=== PATIENT | male | born 1990 | race African-American/Black ===

== ENCOUNTER → 2024-02-03 09:10 | Outpatient (CLI) | payer OTHER, SELFPAY ==
--- NOTE | 2024-02-03 09:13 | DI.ECHO.S_ITS ---
[facility] : : [address] : : [place] : : [id number] : : Phone: [phone] Echocardiogram Report + + :Name: JAZMYN CASEY Study Date: 02/03/2024 Height: 70 in : :[facility] ReadingLocation: Weight: 203 lb : : Gender: Male BSA: 2.1 m2 : :: 1990 Age: 33 yrs BP: 128/83 mmHg: :Reason For Study: CARDIAC DYSRHYTHMIA : :Ordering Physician: NANNETTE, : :MALIK Performed By: Austin Omer : :Referring: MALIK BRUNSON : + + Interpretation Summary 1) Normal left ventricular thickness and size with low normal systolic function (EF 50-55%). 2) Mildly enlarged right ventricle with low normal function. 3) No significant valvular abnormalities. 4) No prior Echo available for comparison. Procedure: A two-dimensional transthoracic echocardiogram with color flow and Doppler was performed. The study quality was technically adequate. There is no prior echocardiogram noted for this patient. Sinus rhythm with frequent PACs. Left Ventricle: The left ventricle is normal in size and wall thickness. The ejection fraction is estimated to be 50-55%. There are no focal wall motion abnormalities. Right Ventricle: The right ventricle is mildly dilated. Right ventricular systolic function is at the lower limits of normal. Atria: The left atrial size is normal. Right atrial size is normal. The interatrial septum grossly appears intact with no obvious evidence for an atrial septal defect. Mitral Valve: The mitral valve is normal. There is no mitral valve stenosis. There is no mitral regurgitation noted. Aortic Valve: The aortic valve is trileaflet. There is no aortic valve stenosis. No aortic regurgitation is present. Tricuspid Valve: The tricuspid valve is normal. There is no tricuspid stenosis. There is trace tricuspid regurgitation. The right ventricular systolic pressure is estimated to be at least 24.3 mmHg based on an estimated right atrial pressure of 3 mm Hg. Pulmonic Valve: The pulmonic valve is not well visualized. There is no pulmonic valvular stenosis. There is a trace or physiologic amount of pulmonic regurgitation. Great Vessels: The aortic root is normal size. The dimensions of the ascending aorta are normal. The IVC is of normal diameter and collapses greater than 50% with a sniff. This suggests a low right atrial pressure of 3 mm Hg. Pericardium/ Pleura There is no pericardial effusion. There is no pleural effusion. MMode/2D Measurements & Calculations LVIDd: 5.2 cm LVOT diam: 2.1 cm LVIDs: 3.5 cm Ao root diam: 2.9 cm FS: 32.5 % asc Aorta Diam: 2.6 cm IVSd: 0.95 cm LVPWd: 1.1 cm LV alvarenga. diameter/BSA (cm/m^2): 2.5 LV sys. diameter/BSA (cm/m^2): 1.7 LA A2 area: 14.9 cm2 RA long axis: 4.7 cm LA A4 area: 14.1 cm2 RA area: 15.8 cm2 LA length (vol): 4.7 cm RA vol: 45.3 ml LA vol: 38.0 ml RA : 21.6 ml/m2 LA vol index: 18.1 ml/m2 RVD1 (basal): 4.2 cm RVD2 (mid): 3.4 cm TAPSE: 2.0 cm Doppler Measurements & Calculations Ao V2 max: 102.7 cm/sec LVOT Max Jorge: 97.0 cm/sec Ao V2 mean: 77.2 cm/sec LV V1 max P.8 mmHg Ao max P.2 mmHg LV V1 VTI: 19.1 cm Ao mean P.6 mmHg HUGH(I,D): 3.5 cm2 Ao V2 VTI: 19.6 cm HUGH(V,D): 3.4 cm2 sev ratio: 0.97 HUGH indexed to BSA (cm^2/m^2): 1.7 MV E max jorge: 54.8 cm/sec TR max jorge: 231.0 cm/sec MV A max jorge: 26.1 cm/sec TR max P.3 mmHg MV E/A: 2.1 PA V2 max: 103.0 cm/sec Med Peak E' Jorge: 8.3 cm/sec PA V2 mean: 78.1 cm/sec E/E' med: 6.6 PA mean P.6 mmHg Lat Peak E' Jorge: 10.2 cm/sec PA pr(Accel): 25.9 mmHg E/E' lat: 5.4 E/e' average: 6.0 MV dec time: 0.16 sec SVJUANITA): 68.2 ml Reading Physician:01:09 PM
== END ==
LOC: ECHO 09:12
PROVIDERS: Referring Provider Orthopaedic Surgery; Visit Provider Physician Assistant
DX: I49.3 Ventricular premature depolarization (principal)
CPT/HCPCS: 93306